=== PATIENT | female | born 1995 | race Asian ===

== ENCOUNTER 2018-08-23 14:39 | Emergency (ER) | payer MEDICAID ==
[~2018-08-23] VITALS: Ht 160 cm; Wt 59.1 kg
[2018-08-23] MEDS ORDERED: CEPH500 PO (14:44)
[2018-08-23] MEDS ORDERED: IBUP-2070 PO (14:44)
[2018-08-23] MEDS ORDERED: ONDANSETRON HCL 4 MG TABLET PO ONE ×2 (15:15→15:30)
[2018-08-23] MEDS ORDERED: HYDROCODONE/ACETAMINOPHEN 5-325 MG TABLET PO ONE (15:15)
[2018-08-23 16:41] VITALS: BP 121/74
== END 2018-08-23 16:43 | disposition home or self-care (01) ==
LOC: EMS 14:41
DX: R68.84 Jaw pain (principal); Z79.899 Other long term (current) drug therapy
CPT/HCPCS: 99283; Q0162